=== PATIENT | male | born 1935 | race Caucasian/White ===

== ENCOUNTER 2017-09-06 06:30 | Emergency (ER) | payer MEDICARE ==
[~2017-09-06] VITALS: Ht 182.9 cm; Wt 108.9 kg
--- OUTSIDE RECORDS SUMMARY | 2017-09-06 06:41 | XMS REPORT | Continuity of Care Document ---
Author Author [facility] Organization [facility] Address Unknown Phone Unavailable Allergies There is no data. Medications There is no data. Problems Date Dx Coded Attending Type Code Diagnosis Diagnosed By 06/28/2013 TOMAS REYES DO V04.81 FLU SHOT Procedures Code Description Performed By Performed On G0008 FLU ADMINISTRATION ( MEDICARE ONLY) 06/28/2013 Results There is no data. Encounters ACCT No. Visit Date/Time Discharge Status Pt. Type Provider Facility Loc./Unit Complaint [id number] 04/01/2014 10:12:00 04/28/2014 08:24:00 DIS Outpatient [id number] 09/06/2017 06:38:00 ACT Emergency KENNETH ODOM, STEPH Franco [facility] ER COUGHING,DIZZY,CAN'T SLEEP,RUNNING NOSE [id number] 06/28/2013 10:56:00 06/28/2013 23:59:59 CLS Outpatient TOMAS REYES DO
--- OUTSIDE RECORDS SUMMARY | 2017-09-06 06:41 | XMS REPORT ---
Author TOMAS Bowden Organization [employer] Address Unknown Phone Unavailable Care Team Providers Care Cloth Shrinking Tester Name Role Phone TOMAS REYES CP Unavailable Allergies No Known Allergies Problems Problem Type Condition Code Onset Dates Condition Status Assessment Encounter for immunization Z23 Active Problem Need for prophylactic vaccination and inoculation, Influenza V04.81 Active Medications No Known Medications Procedures Procedure Coding System Code Date SINGLE IMMUNIZATION ADMIN CPT-4 31752 Jun 27, 2015 FLUZONE TRIV HIGH DOSE (65 & UP)-SANOFI PASTEUR-2014 CPT-4 12886 Jun 27, 2015 Results No Known Results Immunizations Vaccine Administration Date FLUZONE TRIV HIGH DOSE (65 & UP)-SANOFI PASTEUR-2014Jun 27, 2015 Summary Purpose [employer] Submission
--- OUTSIDE RECORDS SUMMARY | 2017-09-06 06:41 | XMS REPORT ---
Author TOMAS Bowden Organization [employer] Address Unknown Phone Unavailable Care Team Providers Care Electrical Wiring Lineman Name Role Phone TOMAS REYES CP Unavailable Allergies No Known Allergies Problems Problem Type Condition Code Onset Dates Condition Status Assessment Encounter for immunization Z23 Active Problem Need for prophylactic vaccination and inoculation, Influenza V04.81 Active Medications No Known Medications Procedures Procedure Coding System Code Date SINGLE IMMUNIZATION ADMIN CPT-4 47751 Jun 26, 2016 FLUARIX QUAD P-FREE 3 AND UP .50 2015 CPT-4 19887 Jun 26, 2016 Results No Known Results Immunizations Vaccine Administration Date FLUARIX QUAD P-FREE 3 AND UP .50 2015Jun 26, 2016 Summary Purpose [employer] Submission
--- NOTE | 2017-09-06 07:02 | ED Cough/URI ---
General Chief Complaint: Cough/Cold/Flu Symptoms Stated Complaint: COUGHING,DIZZY,CAN'T SLEEP,RUNNING NOSE Nursing Triage Note: PT STATES HE WAS OUT IN THE COLD FOR TOO LONG ON FRIDAY AND HAS HAD A COUGH AND CONGESTION SINCE. Source: patient, family Exam Limitations: no limitations History of Present Illness Time seen by provider: 06:56 Initial Comments This 82-year-old white male presents with symptoms of an upper respiratory infection that began 5 days ago following exposure to the elements. The patient 's has similar illness. The patient came to the emergency department this morning because he was awake throughout the night coughing. The patient denies associated headache, stiff neck, fever, chills, nausea, vomiting, or diarrhea. Past medical history includes childhood asthma. Primary care physicians in [place]. Constitutional: No chills, No dizziness, No fever, malaise EENTM: No hearing loss Respiratory: see HPI, cough Cardiovascular: No chest pain Gastrointestinal: No abdominal pain, No diarrhea, No nausea, No vomiting Genitourinary: no symptoms reported Musculoskeletal: No joint swelling Skin: No change in color, No rash Psychiatric/Neurological: No Symptoms Reported Hematologic/Lymphatic: No Symptoms Reported Immunological/Allergic: no symptoms reported Past Dgsqdeb-Eyixmm-Yzlfqm Hx Patient Social History Alcohol Use: Denies Use Recreational Drug Use: No Smoking Status: Never a Smoker Recent Foreign Travel: No Contact w/Someone Who Travel: No Recent Infectious Disease Expo: No Recent Hopitalizations: No Physical Abuse: No Sexual Abuse: No Mistreated: No Fear: No Seasonal Allergies Seasonal Allergies: No Surgeries History of Surgeries: Yes Surgeries: Orthopedic Respiratory History of Respiratory Disorde: No Cardiovascular History of Cardiac Disorders: No Neurological History of Neurological Disord: No Genitourinary History of Genitourinary Disor: No Gastrointestinal History of Gastrointestinal Di: No Musculoskeletal History of Musculoskeletal Dis: No Psychosocial Suicide Risk Score: 0 Integumentary History of Skin or Integumenta: No Reviewed Nursing Assessment Reviewed/Agree w Nursing PMH: Yes Physical Exam Vital Signs Vital Sign - Last 12Hours 09/06/17 06:47 Temp 97.9 Pulse 104 Resp 16 B/P (MAP) 178/89 (118) Capillary Refill : Less Than 3 Seconds General Appearance: WD/WN, no apparent distress Eyes: Bilateral Eye Normal Inspection HEENT: PERRL/EOMI, normal ENT inspection, TMs normal, pharynx normal Neck: full range of motion, supple Respiratory: chest non-tender, No crackles, wheezing Cardiovascular: normal peripheral pulses, regular rate, rhythm Gastrointestinal: normal bowel sounds, non tender, soft Extremities: normal range of motion, non-tender Neurologic/Psychiatric: no motor/sensory deficits, alert Skin: normal color, warm/dry Progress/Results/Core Measures Suspected Sepsis Recent Fever Within 48 Hours: No Infection Criteria Present: Suspected New Infection New/Unexplained Altered Menta: No Sepsis Screen: No Definite Risk Sepsis Diagnosis: SIRS Temperature:97.9 Pulse: 104 Respiratory Rate: 16 Blood Pressure 178 /89 Mean: 118 Results/Orders Vital Signs/I&O Vital Sign - Last 12Hours 09/06/17 06:47 Temp 97.9 Pulse 104 Resp 16 B/P (MAP) 178/89 (118) Capillary Refill : Less Than 3 Seconds Blood Pressure Mean: 118 Progress Note : Time: 07:01 Progress Note I discussed the presentation with the patient and his . They both like to be treated. They're happy to follow-up with her primary care physician in [place] on Friday if not improved. Next I placed the patient and his on a azithromycin and gave them Tussionex for cough at night as they're both being Awake. I invited them to return to the emergency departments over the weekend if any further problems or questions. He 'll follow up with his primary care physician with telephone consultation on Friday. Departure Impression Impression: Primary Impression: Upper respiratory infection Qualified Codes: J06.9 - Acute upper respiratory infection, unspecified; B97.89 - Other viral agents as the cause of diseases classified elsewhere Additional Impression: Cough Disposition: 01 HOME, SELF-CARE Condition: Unchanged Departure-Patient Inst. Decision time for Depature: 07:02 Referrals: NO,LOCAL PHYSICIAN (PCP) Primary Care Physician Patient Instructions: Acute Bronchitis, Adult (DC), Cough, Adult (DC) Add. Discharge Instructions: Zithromax and Tussionex as prescribed. Close follow-up with your primary care physician late on Friday. Return in the interim if any problems or questions. All discharge instructions reviewed with patient and/or family. Voiced understanding. STEPH COOPER MD Sep 06, 2017 07:02
[2017-09-06 07:20] VITALS: BP 178/89
== END 2017-09-06 07:20 | disposition home or self-care (01) ==
LOC: EDUNIT# 06:30 → ER 06:38
DX: J06.9 Acute upper respiratory infection, unspecified (principal); J45.909 Unspecified asthma, uncomplicated
CPT/HCPCS: 99282